=== PATIENT | male | born 1950 | race Caucasian/White ===

== ENCOUNTER 2016-07-31 17:24 | Inpatient (IN) | payer MEDICARE, OTHER ==
[~2016-07-31] VITALS: Ht 182.9 cm; Wt 126.8 kg
[~2016-07-31 17:24] MED LIST: AMOXICILLIN 8751 TAB PO; CARTIA XT300 MG PO; COZAAR 50MG50 MG/TAB PO; LASIX 40MG TABL40 MG PO; NORCO 325 MG-51 TAB PO; PRILOSEC 20MG20 MG PO; PROSCAR 5MG5 MG PO; TRIAMC 0.1 454 TOP; TYLENOL 325MG325 MG PO; XARELTO STARTER20 MG PO
[2016-07-31] MEDS ORDERED: ASPIRIN 81M81 MG/TA2 PO (18:26)
[2016-07-31 18:34] LABS: BASO # 0.1 (0.0-0.2); BASO % 0.8 % (0.0-2.0); EOS # 0.3 (0.0-0.7); EOS % 2.9 % (0-4.0); GRAN # 7.5 (1.4-6.5); GRAN % 65.5 % (42.2-75.2); HEMATOCRIT 41.8 % (42.0-52.0); HEMOGLOBIN 14.3 g/dl (13.5-18.0); LYMPH # 2.5 (1.2-3.4); LYMPH % 21.5 % (20.0-51.0); MEAN CELL VOLUME 92 fl (80.0-100.0); MEAN CORPUSCULAR HEMOGLOBIN 32 pg (27.0-31.0); MEAN CORPUSCULAR HGB CONC 34 g/dl (33.0-37.0); MEAN PLATELET VOLUME 9.2 fl (7.4-10.4); MONO % 8.8 % (1.7-9.3); PLATELET COUNT 230 K/mm3 (130-400); RED BLOOD COUNT 4.53 M/mm3 (4.20-5.60); REDCELL DISTRIBUTION WIDTH-CV 12.5 % (11.5-14.5); WHITE BLOOD COUNT 11.4 K/mm3 (4.8-10.8)
[2016-07-31 18:48] LABS: CALCIUM 9.4 mg/dL (8.4-10.2); POTASSIUM 3.6 mmol/L (3.4-5.0)
[2016-07-31 18:59] LABS: TROPONIN-I 0.012 ng/mL (0.000-0.034)
[2016-07-31 21:13] VITALS: BP 139/78; PULSE 90; TEMP 98
[2016-08-01] VITALS (7 sets, daily range): BP systolic 113–144; BP diastolic 64–91; PULSE 64–93; TEMP 97.5–98.8
[2016-08-02 03:13] VITALS: BP 142/81; PULSE 76; TEMP 98.5
[2016-08-02 07:30] VITALS: BP 117/76; PULSE 82; TEMP 97.6
[2016-08-02 11:33] VITALS: BP 106/63; PULSE 75; TEMP 98
[2016-08-02 15:22] VITALS: BP 103/62; PULSE 71; TEMP 97.6
[2016-08-02 20:00] VITALS: BP 112/63; PULSE 72; TEMP 99.1
[2016-08-02 23:08] VITALS: BP 106/70; PULSE 70; TEMP 98.8
[2016-08-03 04:03] VITALS: BP 122/78; PULSE 72; TEMP 97.9
[2016-08-03 07:43] LABS: BASO # 0.1 (0.0-0.2); BASO % 0.7 % (0.0-2.0); EOS # 0.3 (0.0-0.7); GRAN # 6.8 (1.4-6.5); GRAN % 67.5 % (42.2-75.2); HEMATOCRIT 41.6 % (42.0-52.0); HEMOGLOBIN 14.2 g/dl (13.5-18.0); LYMPH % 19.7 % (20.0-51.0); MEAN CELL VOLUME 93 fl (80.0-100.0); MEAN CORPUSCULAR HEMOGLOBIN 32 pg (27.0-31.0); MEAN CORPUSCULAR HGB CONC 34 g/dl (33.0-37.0); MEAN PLATELET VOLUME 9.4 fl (7.4-10.4); MONO # 0.9 (0.1-0.6); MONO % 8.4 % (1.7-9.3); PLATELET COUNT 270 K/mm3 (130-400); RED BLOOD COUNT 4.46 M/mm3 (4.20-5.60); REDCELL DISTRIBUTION WIDTH-CV 12.5 % (11.5-14.5); WHITE BLOOD COUNT 10.1 K/mm3 (4.8-10.8)
[2016-08-03 08:00] VITALS: BP 112/71; PULSE 70; TEMP 98.4
[2016-08-03 08:02] LABS: CALCIUM 9.2 mg/dL (8.4-10.2); CREATININE, serum 0.84 mg/dL (0.66-1.25); POTASSIUM 3.8 mmol/L (3.4-5.0)
[2016-08-03 11:59] VITALS: BP 109/58; PULSE 80; TEMP 98.6
[2016-08-03 16:58] VITALS: BP 120/53; PULSE 65; TEMP 98.1
[2016-08-03 22:57] VITALS: BP 116/69; PULSE 66; TEMP 98.6
[2016-08-04 03:26] VITALS: BP 111/71; PULSE 75; TEMP 98.6
[2016-08-04 08:16] VITALS: BP 130/71; PULSE 84; TEMP 98.5
[2016-08-04] MEDS ORDERED: XARELTO STARTER20 MG PO (09:58)
== END 2016-08-04 12:30 | disposition home or self-care (01) | DRG 175 ==
LOC: COL.ER 17:24 → MEDICAL 20:17
PROVIDERS: Emergency Medicine; Family Medicine
DX: I26.99 Other pulmonary embolism without acute cor pulmonale (principal); J96.01 Acute respiratory failure with hypoxia; I10 Essential (primary) hypertension; K21.9 Gastro-esophageal reflux disease without esophagitis; N40.0 Benign prostatic hyperplasia without lower urinary tract symptoms; R09.02 Hypoxemia; Z86.711 Personal history of pulmonary embolism
CPT/HCPCS: 99222-AI; 99232-AI; 99239; G0378; Q9967

== ENCOUNTER → 2016-08-14 | Outpatient (CLI) | payer MEDICARE, OTHER ==
[~2016-08-14] MED LIST changes: +ASPIRIN 81M81 MG/TA2 PO
== END ==
LOC: COL.VAS 11:00
DX: I26.99 Other pulmonary embolism without acute cor pulmonale (principal)

== ENCOUNTER → 2016-12-30 | Outpatient (CLI) | payer MEDICARE, OTHER | LOC: COL.RAD 12:59 | DX: J98.6 Disorders of diaphragm (principal); J98.11 Atelectasis | CPT/HCPCS: Q9967 ==

== ENCOUNTER → 2017-01-02 | Outpatient (CLI) | payer MEDICARE, OTHER | LOC: SUN.DIA | DX: E11.40 Type 2 diabetes mellitus with diabetic neuropathy, unspecified (principal); E78.5 Hyperlipidemia, unspecified; I10 Essential (primary) hypertension; E66.9 Obesity, unspecified; Z68.41 Body mass index [BMI] 40.0-44.9, adult; Z71.3 Dietary counseling and surveillance | CPT/HCPCS: G0108 ==

== ENCOUNTER → 2017-01-08 | Outpatient (CLI) | payer MEDICARE, OTHER | LOC: COL.VAS 11:15 | DX: I36.1 Nonrheumatic tricuspid (valve) insufficiency (principal); I26.99 Other pulmonary embolism without acute cor pulmonale ==

== ENCOUNTER → 2017-01-15 | Outpatient (CLI) | payer MEDICARE, OTHER | LOC: SUN.DIA 09:08 | DX: E11.40 Type 2 diabetes mellitus with diabetic neuropathy, unspecified (principal); E78.5 Hyperlipidemia, unspecified; I10 Essential (primary) hypertension; E66.9 Obesity, unspecified; Z68.41 Body mass index [BMI] 40.0-44.9, adult; Z71.3 Dietary counseling and surveillance ==

== ENCOUNTER → 2017-02-17 | Outpatient (CLI) | payer MEDICARE, OTHER ==
[~2017-02-17] MED LIST changes: +GLUCOPHAGE XR500 M1 PO; +TYLENOL 500MG500 MG PO; +XARELTO20 MG PO
== END ==
LOC: SUN.DIA 08:58
DX: E11.40 Type 2 diabetes mellitus with diabetic neuropathy, unspecified (principal); E78.5 Hyperlipidemia, unspecified; I10 Essential (primary) hypertension; E66.9 Obesity, unspecified; Z68.41 Body mass index [BMI] 40.0-44.9, adult; Z71.3 Dietary counseling and surveillance
CPT/HCPCS: G0108

== ENCOUNTER → 2017-02-20 | Outpatient (CLI) | payer MEDICARE, OTHER ==
[~2017-02-20] VITALS: Ht 182.9 cm; Wt 140.2 kg
[2017-02-20 14:23] VITALS: BP 140/78; PULSE 84
== END ==
LOC: LIGHT 08:30
DX: E88.81 Metabolic syndrome and other insulin resistance (principal); I10 Essential (primary) hypertension; E66.01 Morbid (severe) obesity due to excess calories; Z68.41 Body mass index [BMI] 40.0-44.9, adult; Z71.3 Dietary counseling and surveillance; E11.9 Type 2 diabetes mellitus without complications

== ENCOUNTER → 2017-03-03 | Outpatient (CLI) | payer MEDICARE, OTHER ==
[~2017-03-03] VITALS: Ht 182.9 cm; Wt 139.3 kg
== END ==
LOC: LIGHT 08:46
DX: Z01.89 Encounter for other specified special examinations (principal)

== ENCOUNTER → 2017-03-31 | Outpatient (CLI) | payer MEDICARE, OTHER | LOC: LIGHT 14:54 | DX: Z01.818 Encounter for other preprocedural examination (principal) ==

== ENCOUNTER → 2017-04-10 | Outpatient (CLI) | payer MEDICARE, OTHER ==
[~2017-04-10] VITALS: Ht 182.9 cm; Wt 135.9 kg
[2017-04-10 14:12] VITALS: BP 130/80; PULSE 88
== END ==
LOC: SUN.DIA 11:27 → LIGHT 13:02
DX: E88.81 Metabolic syndrome and other insulin resistance (principal); I10 Essential (primary) hypertension; E66.01 Morbid (severe) obesity due to excess calories; Z68.41 Body mass index [BMI] 40.0-44.9, adult; Z71.3 Dietary counseling and surveillance; E11.9 Type 2 diabetes mellitus without complications
CPT/HCPCS: G0463

== ENCOUNTER → 2017-05-22 | Outpatient (CLI) | payer MEDICARE, OTHER ==
[~2017-05-22] VITALS: Ht 182.9 cm; Wt 133.1 kg
[2017-05-22 14:08] VITALS: BP 146/86; PULSE 84
== END ==
LOC: LIGHT 10:08
DX: E88.81 Metabolic syndrome and other insulin resistance (principal); I10 Essential (primary) hypertension; E66.01 Morbid (severe) obesity due to excess calories; Z68.39 Body mass index [BMI] 39.0-39.9, adult; Z71.3 Dietary counseling and surveillance; E11.9 Type 2 diabetes mellitus without complications
CPT/HCPCS: G0463

== ENCOUNTER → 2017-05-22 | Outpatient (CLI) | payer MEDICARE, OTHER | LOC: SUN.DIA 03-19 14:19 | DX: E11.40 Type 2 diabetes mellitus with diabetic neuropathy, unspecified (principal); E78.5 Hyperlipidemia, unspecified; I10 Essential (primary) hypertension; E66.9 Obesity, unspecified; Z68.39 Body mass index [BMI] 39.0-39.9, adult; Z71.3 Dietary counseling and surveillance | CPT/HCPCS: G0108 ==

== ENCOUNTER → 2017-07-10 | Outpatient (CLI) | payer MEDICARE, OTHER ==
[~2017-07-10] VITALS: Ht 182.9 cm; Wt 130.4 kg
[~2017-07-10] MED LIST changes: -GLUCOPHAGE XR500 M1 PO; +GLUCOPHAGE500 MG/TAB PO
[2017-07-10 14:30] VITALS: BP 130/66; PULSE 72
== END ==
LOC: LIGHT 13:49
DX: E88.81 Metabolic syndrome and other insulin resistance (principal); I10 Essential (primary) hypertension; E66.01 Morbid (severe) obesity due to excess calories; Z68.39 Body mass index [BMI] 39.0-39.9, adult; Z71.3 Dietary counseling and surveillance; E11.9 Type 2 diabetes mellitus without complications
CPT/HCPCS: G0463

== ENCOUNTER → 2017-07-10 | Outpatient (CLI) | payer MEDICARE, OTHER | LOC: COL.VAS 11:15 | DX: I27.0 Primary pulmonary hypertension (principal) ==

== ENCOUNTER → 2017-08-21 | Outpatient (CLI) | payer MEDICARE, OTHER ==
[~2017-08-21] VITALS: Ht 182.9 cm; Wt 128.8 kg
[2017-08-21 13:30] VITALS: BP 128/70; PULSE 92
== END ==
LOC: LIGHT 13:20
DX: E88.81 Metabolic syndrome and other insulin resistance (principal); I10 Essential (primary) hypertension; E66.01 Morbid (severe) obesity due to excess calories; Z68.38 Body mass index [BMI] 38.0-38.9, adult; Z71.3 Dietary counseling and surveillance; E11.9 Type 2 diabetes mellitus without complications
CPT/HCPCS: G0463

== ENCOUNTER → 2017-08-26 | Outpatient (CLI) | payer MEDICARE, OTHER | LOC: SUN.DIA 14:36 | DX: E11.40 Type 2 diabetes mellitus with diabetic neuropathy, unspecified (principal); E78.5 Hyperlipidemia, unspecified; I10 Essential (primary) hypertension; E66.9 Obesity, unspecified; Z68.38 Body mass index [BMI] 38.0-38.9, adult; Z71.3 Dietary counseling and surveillance | CPT/HCPCS: G0108 ==

== ENCOUNTER → 2017-09-25 | Outpatient (CLI) | payer MEDICARE, OTHER ==
[~2017-09-25] VITALS: Ht 182.9 cm; Wt 127.2 kg
[2017-09-25 13:57] VITALS: BP 120/60; PULSE 76
== END ==
LOC: LIGHT 11:09
DX: E88.81 Metabolic syndrome and other insulin resistance (principal); I10 Essential (primary) hypertension; E66.01 Morbid (severe) obesity due to excess calories; Z68.38 Body mass index [BMI] 38.0-38.9, adult; Z71.3 Dietary counseling and surveillance; E11.9 Type 2 diabetes mellitus without complications
CPT/HCPCS: G0463

== ENCOUNTER → 2017-10-23 | Outpatient (CLI) | payer MEDICARE, OTHER ==
[~2017-10-23] VITALS: Ht 182.9 cm; Wt 127.9 kg
[2017-10-23 14:14] VITALS: BP 158/80; PULSE 60
== END ==
LOC: LIGHT 12:53
DX: E11.9 Type 2 diabetes mellitus without complications (principal); E88.81 Metabolic syndrome and other insulin resistance; I10 Essential (primary) hypertension; E66.01 Morbid (severe) obesity due to excess calories; Z68.38 Body mass index [BMI] 38.0-38.9, adult; Z71.3 Dietary counseling and surveillance
CPT/HCPCS: G0463

== ENCOUNTER → 2017-11-27 | Outpatient (CLI) | payer MEDICARE, OTHER ==
[~2017-11-27] VITALS: Ht 182.9 cm; Wt 126.1 kg
[2017-11-27 14:20] VITALS: BP 140/56; PULSE 72
== END ==
LOC: LIGHT 14:05
DX: E88.81 Metabolic syndrome and other insulin resistance (principal); I10 Essential (primary) hypertension; E66.01 Morbid (severe) obesity due to excess calories; E11.9 Type 2 diabetes mellitus without complications; Z68.37 Body mass index [BMI] 37.0-37.9, adult; Z71.3 Dietary counseling and surveillance
CPT/HCPCS: G0463

== ENCOUNTER → 2018-01-01 | Outpatient (CLI) | payer MEDICARE, OTHER ==
[~2018-01-01] VITALS: Ht 182.9 cm; Wt 127.7 kg
[2018-01-01 15:04] VITALS: BP 140/60; PULSE 84
== END ==
LOC: LIGHT 13:32
DX: E88.81 Metabolic syndrome and other insulin resistance (principal); I10 Essential (primary) hypertension; E11.65 Type 2 diabetes mellitus with hyperglycemia; E66.01 Morbid (severe) obesity due to excess calories; Z68.38 Body mass index [BMI] 38.0-38.9, adult; Z71.3 Dietary counseling and surveillance
CPT/HCPCS: G0463

== ENCOUNTER → 2018-01-29 | Outpatient (CLI) | payer MEDICARE, OTHER ==
[~2018-01-29] VITALS: Ht 182.9 cm; Wt 126.8 kg
[~2018-01-29] MED LIST changes: +PHENTERMINE15 MG PO
[2018-01-29 11:45] VITALS: BP 130/82; PULSE 84
== END ==
LOC: LIGHT 11:36
DX: E88.81 Metabolic syndrome and other insulin resistance (principal); I10 Essential (primary) hypertension; E11.65 Type 2 diabetes mellitus with hyperglycemia; E66.01 Morbid (severe) obesity due to excess calories; Z68.37 Body mass index [BMI] 37.0-37.9, adult; Z71.3 Dietary counseling and surveillance
CPT/HCPCS: G0463

== ENCOUNTER → 2018-03-12 | Outpatient (CLI) | payer MEDICARE, OTHER ==
[~2018-03-12] VITALS: Ht 182.9 cm; Wt 125.9 kg
[~2018-03-12] MED LIST changes: +ADIPEX-P37.5 MG PO; -PHENTERMINE15 MG PO
[2018-03-12 15:40] VITALS: BP 150/72; PULSE 84
== END ==
LOC: LIGHT 03-05 11:10
DX: E88.81 Metabolic syndrome and other insulin resistance (principal); I10 Essential (primary) hypertension; E11.65 Type 2 diabetes mellitus with hyperglycemia; E66.01 Morbid (severe) obesity due to excess calories; Z68.37 Body mass index [BMI] 37.0-37.9, adult; Z71.3 Dietary counseling and surveillance
CPT/HCPCS: G0463

== ENCOUNTER → 2018-05-07 | Outpatient (CLI) | payer MEDICARE ==
[~2018-05-07] VITALS: Ht 182.9 cm; Wt 125.0 kg
[2018-05-07 10:06] VITALS: BP 142/90; PULSE 80
== END ==
LOC: LIGHT 04-23 15:59
DX: E88.81 Metabolic syndrome and other insulin resistance (principal); I10 Essential (primary) hypertension; E11.65 Type 2 diabetes mellitus with hyperglycemia; E66.01 Morbid (severe) obesity due to excess calories; Z68.37 Body mass index [BMI] 37.0-37.9, adult; Z71.3 Dietary counseling and surveillance
CPT/HCPCS: G0463

== ENCOUNTER → 2018-06-18 | Outpatient (CLI) | payer MEDICARE ==
[~2018-06-18] VITALS: Ht 182.9 cm; Wt 125.6 kg
[~2018-06-18] MED LIST changes: -ADIPEX-P37.5 MG PO; +FASTIN30 MG PO
[2018-06-18 13:33] VITALS: BP 144/80; PULSE 92
== END ==
LOC: LIGHT 13:25
DX: E88.81 Metabolic syndrome and other insulin resistance (principal); I10 Essential (primary) hypertension; E11.65 Type 2 diabetes mellitus with hyperglycemia; E66.01 Morbid (severe) obesity due to excess calories; Z68.37 Body mass index [BMI] 37.0-37.9, adult; Z71.3 Dietary counseling and surveillance
CPT/HCPCS: G0463

== ENCOUNTER → 2018-08-06 | Outpatient (CLI) | payer MEDICARE ==
[~2018-08-06] VITALS: Ht 182.9 cm; Wt 123.6 kg
[2018-08-06 13:26] VITALS: BP 146/76; PULSE 72
== END ==
LOC: LIGHT 13:20
DX: E88.81 Metabolic syndrome and other insulin resistance (principal); I10 Essential (primary) hypertension; E11.65 Type 2 diabetes mellitus with hyperglycemia; E66.01 Morbid (severe) obesity due to excess calories; Z68.37 Body mass index [BMI] 37.0-37.9, adult; Z71.3 Dietary counseling and surveillance
CPT/HCPCS: G0463

== ENCOUNTER → 2018-09-10 | Outpatient (CLI) | payer MEDICARE ==
[~2018-09-10] VITALS: Ht 182.9 cm; Wt 121.6 kg
[2018-09-10 13:51] VITALS: BP 128/76; PULSE 64
== END ==
LOC: LIGHT 11:53
DX: E88.81 Metabolic syndrome and other insulin resistance (principal); I10 Essential (primary) hypertension; E11.65 Type 2 diabetes mellitus with hyperglycemia; E66.01 Morbid (severe) obesity due to excess calories; Z68.36 Body mass index [BMI] 36.0-36.9, adult; Z71.3 Dietary counseling and surveillance
CPT/HCPCS: G0463

== ENCOUNTER → 2018-12-10 | Outpatient (CLI) | payer MEDICARE ==
[~2018-12-10] VITALS: Ht 182.9 cm; Wt 120.7 kg
[2018-12-10 13:54] VITALS: BP 136/70; PULSE 72
== END ==
LOC: LIGHT 11:37
DX: E88.81 Metabolic syndrome and other insulin resistance (principal); I10 Essential (primary) hypertension; E11.65 Type 2 diabetes mellitus with hyperglycemia; E66.01 Morbid (severe) obesity due to excess calories; Z68.36 Body mass index [BMI] 36.0-36.9, adult; Z71.3 Dietary counseling and surveillance
CPT/HCPCS: G0463

== ENCOUNTER → 2019-02-04 | Outpatient (CLI) | payer MEDICARE ==
[~2019-02-04] VITALS: Ht 182.9 cm; Wt 120.2 kg
[2019-02-04 14:07] VITALS: BP 140/70; PULSE 76
== END ==
LOC: LIGHT 01-21 15:47
DX: E88.81 Metabolic syndrome and other insulin resistance (principal); I10 Essential (primary) hypertension; E11.65 Type 2 diabetes mellitus with hyperglycemia; E66.01 Morbid (severe) obesity due to excess calories; Z68.35 Body mass index [BMI] 35.0-35.9, adult; Z71.3 Dietary counseling and surveillance
CPT/HCPCS: G0463

== ENCOUNTER → 2019-04-15 | Outpatient (CLI) | payer MEDICARE ==
[~2019-04-15] VITALS: Ht 182.9 cm; Wt 125.6 kg
[~2019-04-15] MED LIST changes: +ADIPEX-P37.5 MG PO; -FASTIN30 MG PO
[2019-04-15 11:55] VITALS: BP 144/86; PULSE 88
== END ==
LOC: LIGHT
DX: Z68.37 Body mass index [BMI] 37.0-37.9, adult (principal); E88.81 Metabolic syndrome and other insulin resistance; I10 Essential (primary) hypertension; E11.9 Type 2 diabetes mellitus without complications
CPT/HCPCS: G0463

== ENCOUNTER → 2019-05-13 | Outpatient (CLI) | payer MEDICARE ==
[~2019-05-13] VITALS: Ht 182.9 cm; Wt 123.8 kg
[2019-05-13 14:41] VITALS: BP 136/76; PULSE 84
== END ==
LOC: LIGHT 14:21
DX: Z68.37 Body mass index [BMI] 37.0-37.9, adult (principal); E88.81 Metabolic syndrome and other insulin resistance; I10 Essential (primary) hypertension; E11.9 Type 2 diabetes mellitus without complications
CPT/HCPCS: G0463

== ENCOUNTER 2019-05-27 14:00 | Outpatient (RCR) | payer MEDICARE | END 2019-07-08 | disposition home or self-care (01) | LOC: WSPT | DX: I26.99 Other pulmonary embolism without acute cor pulmonale (principal) ==

== ENCOUNTER → 2019-09-23 | Outpatient (CLI) | payer MEDICARE ==
[~2019-09-23] VITALS: Ht 182.9 cm; Wt 124.1 kg
[2019-09-23 10:46] VITALS: BP 144/90; PULSE 64
== END ==
LOC: LIGHT 06-10 13:32
DX: E66.8 Other obesity (principal); Z68.37 Body mass index [BMI] 37.0-37.9, adult; E88.81 Metabolic syndrome and other insulin resistance; I10 Essential (primary) hypertension; E11.9 Type 2 diabetes mellitus without complications
CPT/HCPCS: G0463

== ENCOUNTER → 2019-10-28 | Outpatient (CLI) | payer MEDICARE ==
[~2019-10-28] VITALS: Ht 182.9 cm; Wt 125.9 kg
[2019-10-28 13:08] VITALS: BP 142/80; PULSE 80
== END ==
LOC: LIGHT 11:16
DX: E66.8 Other obesity (principal); Z68.37 Body mass index [BMI] 37.0-37.9, adult; E88.81 Metabolic syndrome and other insulin resistance; I10 Essential (primary) hypertension; E11.9 Type 2 diabetes mellitus without complications
CPT/HCPCS: G0463

== ENCOUNTER → 2019-12-23 | Outpatient (CLI) | payer MEDICARE ==
[~2019-12-23] VITALS: Ht 182.9 cm; Wt 123.8 kg
[2019-12-23 11:41] VITALS: BP 126/80; PULSE 64
== END ==
LOC: LIGHT 11:36
DX: E66.8 Other obesity (principal); Z68.37 Body mass index [BMI] 37.0-37.9, adult; E11.9 Type 2 diabetes mellitus without complications; E88.81 Metabolic syndrome and other insulin resistance; I10 Essential (primary) hypertension
CPT/HCPCS: G0463

== ENCOUNTER → 2019-12-29 | Outpatient (CLI) | payer MEDICARE | LOC: COL.VAS 13:51 | DX: R06.00 Dyspnea, unspecified (principal) ==